=== PATIENT | female | born 1945 | race African-American/Black ===

== ENCOUNTER 2020-01-22 23:35 | Emergency (ER) | payer MEDICARE, OTHER ==
[~2020-01-22] VITALS: Ht 160 cm; Wt 79.5 kg
[~2020-01-22 23:35] MED LIST: GABA-290; HTCZ; IBUP-779; SEE MED SHEET; SIMV-43
[2020-01-23] MEDS ORDERED: IBUPROFEN 600MG TABLET PO STA (01:43)
[2020-01-23 01:48] VITALS: BP 156/75
== END 2020-01-23 02:00 | disposition home or self-care (01) ==
LOC: ER 23:35
DX: S93.401A Sprain of unspecified ligament of right ankle, initial encounter (principal); I10 Essential (primary) hypertension; E78.00 Pure hypercholesterolemia, unspecified; Z91.013 Allergy to seafood; Z98.890 Other specified postprocedural states; W01.0XXA Fall on same level from slipping, tripping and stumbling without subsequent striking against object, initial encounter; Y93.89 Activity, other specified; Y92.018 Other place in single-family (private) house as the place of occurrence of the external cause
CPT/HCPCS: 73610; 99283

== ENCOUNTER 2024-09-28 01:51 | Emergency (ER) | payer OTHER ==
[~2024-09-28] VITALS: Ht 157.5 cm; Wt 66.0 kg
[2024-09-28 01:55] VITALS: O2SAT 98
[2024-09-28 02:06] VITALS: RESP 18
[2024-09-28] MEDS ORDERED: TOPUD MT (04:32)
[2024-09-28] MEDS ORDERED: LIDO-53 TP (04:32)
[2024-09-28 04:36] VITALS: BP 173/83; PULSE 81; TEMP 36.8; O2SAT 99
[2024-09-28] MEDS: LIDOCAINE 5% PATCH TOP SCH (04:43)
== END 2024-09-28 04:47 | disposition home or self-care (01) ==
LOC: ER 01:51
DX: M25.512 Pain in left shoulder (principal); M25.562 Pain in left knee; M25.561 Pain in right knee; I10 Essential (primary) hypertension; Z90.49 Acquired absence of other specified parts of digestive tract; E78.00 Pure hypercholesterolemia, unspecified; Z79.899 Other long term (current) drug therapy; Z98.890 Other specified postprocedural states; V43.52XA Car driver injured in collision with other type car in traffic accident, initial encounter; Y93.89 Activity, other specified; Y92.410 Unspecified street and highway as the place of occurrence of the external cause; Y99.8 Other external cause status
CPT/HCPCS: 73030; 73560; 99284

== ENCOUNTER 2024-11-15 10:21 | Emergency (ER) | payer OTHER ==
[~2024-11-15] VITALS: Ht 160 cm; Wt 72.0 kg
[~2024-11-15 10:21] MED LIST changes: +LIDO-53 TP; +TOPUD MT
[2024-11-15 10:24] VITALS: O2SAT 95
[2024-11-15 11:09] LABS: BASOPHILS % 0.8 % (0.0-2.0); EOSINOPHILS % 2.1 % (0.0-5.0); HEMATOCRIT. 42.0 % (36.0-48.0); HEMOGLOBIN. 14.0 g/dL (12.0-16.0); LYMPHOCYTES % 37.8 % (20.0-50.0); MEAN PLATELET VOLUME 8.0 fl (7.4-10.4); MONOCYTES % 5.3 % (2.0-8.0); NEUTROPHILS % 54.0 % (40.0-76.0); PLATELET 246 x1000/uL (130-400); RED BLOOD CELL COUNT 4.55 mill/uL (4.2-5.4); RED CELL DISTRIBUTION WIDTH 13.1 % (11.6-14.6)
[2024-11-15] MEDS: HYDRALAZINE 20MG/ML VIAL IV NR (11:15)
[2024-11-15] MEDS: ACETAMINOPHEN 325MG TABLET PO NR (11:15)
[2024-11-15 11:19] LABS: CREATININE 0.9 mg/dL (0.6-1.0); UREA NITROGEN BLOOD 9 mg/dL (9-23)
[2024-11-15] MEDS ORDERED: TOPUD PO (12:11)
[2024-11-15 13:23] VITALS: BP 134/86; PULSE 95; RESP 20; TEMP 36.9; O2SAT 95
== END 2024-11-15 13:24 | disposition home or self-care (01) ==
LOC: ER 10:21
DX: S82.001A Unspecified fracture of right patella, initial encounter for closed fracture (principal); E78.00 Pure hypercholesterolemia, unspecified; I10 Essential (primary) hypertension; J45.909 Unspecified asthma, uncomplicated; Z90.49 Acquired absence of other specified parts of digestive tract; Z79.899 Other long term (current) drug therapy; V43.62XA Car passenger injured in collision with other type car in traffic accident, initial encounter; Y92.410 Unspecified street and highway as the place of occurrence of the external cause; Y93.89 Activity, other specified; Y99.8 Other external cause status
CPT/HCPCS: 99285; 96374; 71045; 80048; 85025; 36415; 73560; 93005; J0360